=== PATIENT | female | born 1985 | race American Indian/Alaskan Native ===

== ENCOUNTER 2016-09-24 05:45 | Emergency (ER) | payer MEDICAID, OTHER ==
[2016-09-24] MEDS ORDERED: MOTRIN ONE (06:36)
[2016-09-24] MEDS: MOTRIN PO ONE (06:43)
--- NOTE | 2016-09-24 08:06 | Emergency Department Report ---
ED General Adult HPI - General Chief complaint: Sore Throat Stated complaint: FEVER/SORE THROAT Time Seen by Provider: 09/24/16 07:51 Source: patient Mode of arrival: Ambulatory Limitations: No Limitations - History of Present Illness Initial comments: 30-year-old female presents to the ED complaining about sore throat, fever, body aches, chills for about 2 days. States very painful to swallow. Denies cough, chest pain, shortness of breath. Denies taking medication. Severity scale (0 -10): 10 - Related Data Previous Rx's Medication Instructions Recorded Last Taken Type Amoxicillin 500 mg PO BID #20 capsule 09/24/16 Unknown Rx Ibuprofen [Motrin] 600 mg PO Q8H PRN #20 tablet 09/24/16 Unknown Rx Allergies Allergy/AdvReac Type Severity Reaction Status Date / Time No Known Allergies Allergy Verified 09/24/16 06:37 ED Review of Systems ROS: Stated complaint: FEVER/SORE THROAT Other details as noted in HPI Constitutional: fever. denies: chills Eyes: denies: eye pain, eye discharge, vision change ENT: throat pain. denies: ear pain Respiratory: denies: cough, shortness of breath, wheezing Cardiovascular: denies: chest pain, palpitations Endocrine: no symptoms reported Gastrointestinal: denies: abdominal pain, nausea, diarrhea Genitourinary: denies: urgency, dysuria, discharge Musculoskeletal: denies: back pain, joint swelling, arthralgia Skin: denies: rash, lesions Neurological: denies: headache, weakness, paresthesias Psychiatric: denies: anxiety, depression Hematological/Lymphatic: denies: easy bleeding, easy bruising ED Past Medical Hx - Past Medical History Previous Medical History?: Yes Additional medical history: anemia - Surgical History Past Surgical History?: Yes Additional Surgical History: tummy tuck - Medications Home Medications: Home Medications Medication Instructions Recorded Confirmed Last Taken Type Amoxicillin 500 mg PO BID #20 capsule 09/24/16 Unknown Rx Ibuprofen [Motrin] 600 mg PO Q8H PRN #20 tablet 09/24/16 Unknown Rx ED Physical Exam - General Limitations: No Limitations General appearance: alert, in no apparent distress - Head Head exam: Present: atraumatic, normocephalic - Eye Eye exam: Present: normal appearance - ENT ENT exam: Present: mucous membranes moist, other (bilateral tonsils enlarged with exudate, post pharyngeal erythema. Both tonsils are touching.) - Neck Neck exam: Present: normal inspection - Respiratory Respiratory exam: Present: normal lung sounds bilaterally. Absent: respiratory distress - Cardiovascular Cardiovascular Exam: Present: regular rate, normal rhythm. Absent: systolic murmur, diastolic murmur, rubs, gallop - GI/Abdominal GI/Abdominal exam: Present: soft, normal bowel sounds - Extremities Exam Extremities exam: Present: normal inspection - Back Exam Back exam: Present: normal inspection - Neurological Exam Neurological exam: Present: alert, oriented X3 - Psychiatric Psychiatric exam: Present: normal affect, normal mood - Skin Skin exam: Present: warm, dry, intact, normal color. Absent: rash ED Course Vital Signs 09/24/16 09/24/16 06:33 06:43 Temperature 101.5 F H Pulse Rate 99 H Respiratory 18 18 Rate Blood Pressure 126/75 O2 Sat by Pulse 100 Oximetry ED Medical Decision Making - Medical Decision Making tonsils large but no sign peritonsillar abscess. will treat aggressively with IM rocephin and solumedrol as well as outpatient medication. Critical care attestation.: If time is entered above; I have spent that time in minutes in the direct care of this critically ill patient, excluding procedure time. ED Disposition Clinical Impression: Acute bacterial tonsillitis Disposition: DISCHARGED TO HOME OR SELFCARE Is pt being admited?: No Does the pt Need Aspirin: No Condition: Good Instructions: Tonsillitis (ED) Prescriptions: Amoxicillin 500 mg PO BID #20 capsule Ibuprofen [Motrin] 600 mg PO Q8H PRN #20 tablet PRN Reason: Pain Referrals: RHIANNON DELGADILLO MD [Primary Care Provider] - 3-5 Days Forms: Work/School Release Form(ED) Time of Disposition: 08:05
[2016-09-24] MEDS: ROCEPHIN IM ONE (08:25)
[2016-09-24] MEDS: XYLOCAINE 1% MPF 5 mL INFILTRATI ONE (08:26)
[2016-09-24 08:51] VITALS: BP 119/74
== END 2016-09-24 08:50 | disposition home or self-care (01) ==
LOC: ED 05:45
DX: J03.80 Acute tonsillitis due to other specified organisms (principal); B96.89 Other specified bacterial agents as the cause of diseases classified elsewhere; D64.9 Anemia, unspecified
CPT/HCPCS: 96372; 99282; J0696; J2930

== ENCOUNTER 2018-04-29 00:32 | Emergency (ER) | payer MEDICAID ==
[2018-04-29 00:52] VITALS: BP 116/76
[2018-04-29 01:32] LABS: Basophils # (Auto) 0.1 K/mm3 (0.0-0.1); Basophils % (Auto) 0.5 % (0.0-1.8); Eosinophils # (Auto) 0.3 K/mm3 (0.0-0.4); Eosinophils % (Auto) 3.8 % (0.0-4.3); Hematocrit 36.8 % (30.3-42.9); Hemoglobin 12.4 gm/dl (10.1-14.3); Lymphocytes # (Auto) 2.5 K/mm3 (1.2-5.4); Lymphocytes % (Auto) 26.8 % (13.4-35.0); Mean Corpuscular HGB Conc 34 % (30-34); Mean Corpuscular Hemoglobin 26 pg (28-32); Mean Corpuscular Volume 78 fl (79-97); Monocytes # (Auto) 0.9 K/mm3 (0.0-0.8); Monocytes % (Auto) 10.2 % (0.0-7.3); Platelet Count 256 K/mm3 (140-440); Red Blood Count 4.72 M/mm3 (3.65-5.03)
[2018-04-29 01:47] LABS: Alanine Aminotransferase 12 units/L (7-56); Albumin 4.1 g/dL (3.9-5); BUN/Creatinine Ratio 9; Blood Urea Nitrogen 6 mg/dL (7-17); Calcium 8.9 mg/dL (8.4-10.2); Hemolysis Index 0
--- NOTE | 2018-04-29 04:47 | Emergency Department Report ---
ED Abdominal Pain HPI - General Chief Complaint: Abdominal Pain Stated Complaint: ABD PAIN; 11WKS GEST Time Seen by Provider: 04/29/18 04:30 Source: patient Mode of arrival: Ambulatory Limitations: No Limitations - Related Data Previous Rx's Medication Instructions Recorded Last Taken Type Amoxicillin 500 mg PO BID #20 capsule 09/24/16 Unknown Rx Ibuprofen [Motrin] 600 mg PO Q8H PRN #20 tablet 09/24/16 Unknown Rx Esomeprazole Magnesium [NexIUM] 40 mg PO QDAY 30 Days #30 03/27/18 Unknown Rx capsule. Allergies Allergy/AdvReac Type Severity Reaction Status Date / Time No Known Allergies Allergy Verified 09/24/16 06:37 ED Review of Systems ROS: Stated complaint: ABD PAIN; 11WKS GEST Other details as noted in HPI ED Past Medical Hx - Past Medical History Previous Medical History?: No Additional medical history: anemia - Surgical History Past Surgical History?: Yes Additional Surgical History: tummy tuck - Social History Smoking Status: Never Smoker Substance Use Type: None - Medications Home Medications: Home Medications Medication Instructions Recorded Confirmed Last Taken Type Amoxicillin 500 mg PO BID #20 capsule 09/24/16 Unknown Rx Ibuprofen [Motrin] 600 mg PO Q8H PRN #20 tablet 09/24/16 Unknown Rx Esomeprazole Magnesium [NexIUM] 40 mg PO QDAY 30 Days #30 03/27/18 Unknown Rx capsule. ED Physical Exam - General Limitations: No Limitations ED Course Vital Signs 04/29/18 00:49 Temperature 99 F Pulse Rate 74 Respiratory 14 Rate Blood Pressure 116/76 O2 Sat by Pulse 100 Oximetry ED Medical Decision Making - Lab Data Result diagrams: 04/29/18 01:01 04/29/18 01:01 - Radiology Data Radiology results: report reviewed, image reviewed Patient: PETE GASTELUM MR#: [id number] : 1985 Acct:[id number] Age/Sex: 32 / F ADM Date: 04/29/18 Loc: ED Attending Dr: Ordering Physician: STEVO VENCES Date of Service: 04/29/18 Procedure(s): US abdomen complete Accession Number(s): [id number] cc: STEVO VENCES FINAL REPORT EXAM: US ABDOMEN COMPLETE HISTORY: epigastric pain and tenderness concern for gallbla TECHNIQUE: Routine imaging was obtained of the upper abdomen. FINDINGS: The gallbladder is normal in size and wall thickness. Stones are not seen. The common bile duct measures 2.1 millimeters which is normal. The liver is normal size and echotexture. The abdominal aorta proximally measures 1.3 cm in diameter which is normal. The entire aorta is not seen. The IVC is patent. The pancreas is normal in size and echotexture. The spleen is normal in size and echotexture and measures 10.8 cm in dimension. The left kidney is normal size contour and echotexture measures 11.2 cm x 4.7 cm x 4.5 cm. The right kidney reveals moderate hydronephrosis. It measures 10.1 cm x 4.8 cm x 5.2 cm. A stone is not seen in the right kidney. Free fluid is not identified. IMPRESSION: Normal-appearing gallbladder and biliary tree. Moderate right-sided hydronephrosis. Transcribed By: RB Dictated By: MOSHE TURNER MD Electronically Authenticated By: MOSHE TURNER - Medical Decision Making Patient has been evaluated by this provider fast track. Patient's CBC is within normal limits CMP within normal limits. Ultrasound of abdomen shows a normal gallbladder and right hydronephrosis, patient is 11wk. These follow-up which are [facility] provider. Critical care attestation.: If time is entered above; I have spent that time in minutes in the direct care of this critically ill patient, excluding procedure time. ED Disposition Clinical Impression: Stomach discomfort Disposition: DC-01 TO HOME OR SELFCARE Is pt being admited?: No Does the pt Need Aspirin: No Condition: Stable Instructions: Abdominal Pain (ED), Flank Pain (ED), Acute Abdominal Pain (ED), Abdominal Pain in (ED) Additional Instructions: Ultrasound and labs are within normal limits. I recommend for you to follow up with her [facility] [facility] provider. You can take Tylenol for discomfort. Referrals: PRIMARY CARE,MD [Primary Care Provider] - 3-5 Days Your, OB [Other] - 3-5 Days Forms: Work/School Release Form(ED), Accompanied Note
[2018-04-29 05:31] LABS: Creatine Kinase MB < 1.0 ng/mL (0.0-4.0)
[2018-04-29] MEDS ORDERED: TYLENOL ONE (05:55)
--- NOTE | 2018-04-29 06:01 | Ultrasound Report ---
FINAL REPORT EXAM: US ABDOMEN COMPLETE HISTORY: epigastric pain and tenderness concern for gallbla TECHNIQUE: Routine imaging was obtained of the upper abdomen. FINDINGS: The gallbladder is normal in size and wall thickness. Stones are not seen. The common bile duct measures 2.1 millimeters which is normal. The liver is normal size and echotexture. The abdominal aorta proximally measures 1.3 cm in diameter which is normal. The entire aorta is not seen. The IVC is patent. The pancreas is normal in size and echotexture. The spleen is normal in size and echotexture and measures 10.8 cm in dimension. The left kidney is normal size contour and echotexture measures 11.2 cm x 4.7 cm x 4.5 cm. The right kidney reveals moderate hydronephrosis. It measures 10.1 cm x 4.8 cm x 5.2 cm. A stone is not seen in the right kidney. Free fluid is not identified. IMPRESSION: Normal-appearing gallbladder and biliary tree. Moderate right-sided hydronephrosis.
== END 2018-04-29 06:25 | disposition home or self-care (01) ==
LOC: ED 00:32
DX: O26.891 Other specified pregnancy related conditions, first trimester (principal); R10.9 Unspecified abdominal pain; Z3A.11 11 weeks gestation of pregnancy
CPT/HCPCS: 36415; 76700; 80053; 82550; 82553; 83690; 84484; 84703; 85025

== ENCOUNTER 2018-08-16 10:43 | Outpatient (CLI) | payer OTHER, MEDICAID ==
[2018-08-16 11:01] VITALS: BP 121/66
[2018-08-16] MEDS ORDERED: TYLENOL PO ONE (13:00)
== END 2018-08-16 14:48 | disposition home or self-care (01) ==
LOC: TRG 10:43
PROVIDERS: ATTEND Obstetrics & Gynecology
DX: O9A.212 Injury, poisoning and certain other consequences of external causes complicating pregnancy, second trimester (principal); Z3A.26 26 weeks gestation of pregnancy
CPT/HCPCS: 59025